=== PATIENT | female | born 2000 | race Two or more races ===

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

== ENCOUNTER 2021-12-19 21:21 | Emergency (ER) | payer OTHER ==
[~2021-12-19] VITALS: Ht 165.1 cm; Wt 74.8 kg
[2021-12-19] MEDS ORDERED: IPRAT-ALBUT 0.5-3 ML IH (23:51)
== END 2021-12-20 00:17 | disposition home or self-care (01) ==
LOC: ER 21:21
DX: J06.9 Acute upper respiratory infection, unspecified (principal); R06.02 Shortness of breath; J40 Bronchitis, not specified as acute or chronic; Z20.822 Contact with and (suspected) exposure to COVID-19

== ENCOUNTER 2024-05-04 11:17 | Emergency (ER) | payer OTHER ==
[~2024-05-04] VITALS: Ht 165.1 cm; Wt 79.4 kg
[~2024-05-04 11:17] MED LIST changes: +IPRAT-ALBUT 0.5-3 ML IH
[2024-05-04] MEDS ORDERED: BUSPIRONE HCL15 MG (11:21)
[2024-05-04] MEDS ORDERED: AVIANE-28 TABL1 EACH (11:22)
[2024-05-04] MEDS ORDERED: KETOROLAC TROMETHAMINE 60 MG VIAL IM STA (13:30)
[2024-05-04] MEDS ORDERED: KETOROLAC TROMETHAMINE 60 MG VIAL IM ONE (13:35)
== END 2024-05-04 14:36 | disposition home or self-care (01) ==
LOC: ER 11:19
DX: S93.401A Sprain of unspecified ligament of right ankle, initial encounter (principal); X58.XXXA Exposure to other specified factors, initial encounter; Y93.K1 Activity, walking an animal; Y92.89 Other specified places as the place of occurrence of the external cause; Y99.9 Unspecified external cause status; Z87.09 Personal history of other diseases of the respiratory system